=== PATIENT | female | born 1990 | race Caucasian/White ===

== ENCOUNTER → 2017-01-13 | Outpatient (REF) | payer OTHER ==
[~2017-01-13] MED LIST: TYLE650T25 PO
== END ==
LOC: M SFHCLERA 10:51
PROVIDERS: ATTEND Nurse Practitioner Family
DX: R53.81 Other malaise (principal)

== ENCOUNTER → 2018-09-08 | Outpatient (CLI) | payer OTHER ==
[2018-09-08 15:35] LABS: ALBUMIN 3.7 GM/DL (3.2-5.2); ALT/SGPT 28 U/L (12-78); BILIRUBIN,DIRECT < 0.1 MG/DL (0.0-0.2); BILIRUBIN,TOTAL 0.4 MG/DL (0.2-1.0); CHOLESTEROL LEVEL 217 MG/DL (<200); CHOLESTEROL RISK RATIO 4.717 (<5); FOLLICLE STIMULATING HORMONE 6.1 mIU/mL; HDL CHOLESTEROL 46 MG/DL (>40); LDL CHOLESTEROL 148 MG/DL (<100); LUTEINIZING HORMONE 2.4 mIU/mL; NON-HDL-C 171 MG/DL; PROLACTIN 7.2 NG/ML; TOTAL PROTEIN 7.9 GM/DL (6.4-8.2); TRIGLYCERIDES LEVEL 116 MG/DL (<150)
[2018-09-12 00:06] LABS: FREE ANDROGEN INDEX 0.9 (0.4-8.4); INSULIN LEVEL 22.2 uIU/mL (2.6-24.9); SEX HORM BINDING GLOB 33.5 nmol/L (24.6-122.0); TESTOSTERONE 9 ng/dL (8-48)
== END ==
LOC: M LAB 13:33
DX: E28.2 Polycystic ovarian syndrome (principal)

== ENCOUNTER → 2018-09-12 | Outpatient (CLI) | payer OTHER ==
--- NOTE | 2018-09-13 07:05 | REP ---
Clinical: Polycystic ovarian syndrome . Technique: Transabdominal pelvic ultrasound followed by transvaginal examination for better evaluation of the endometrium and adnexa. Findings: Bladder is unremarkable and measures 11.0 x 6.1 x 8.6 cm . Heterogeneous anteverted uterus measures 8.8 x 4.4 x 5.2 cm . The endometrial complex measures 16.4 mm thickness. Subcentimeter Nabothian cysts noted. Right ovary measures 5.0 x 3.0 x 3.0 cm and includes 2.4 x 2.1 x 1.8 cm dominant follicle. The left ovary is not definitively identified and a 7.5 cm left adnexal complex fat containing mass lesion is identified and consistent with dermoid. Findings are relatively similar to pelvic MRI dated 09/30/2014. Impression: 1. Limited examination due to body habitus and technical factors. Heterogeneous uterus with moderately thickened endometrial complex possibly related to menstrual cycle. 2. Left adnexal fat containing complex mass consistent with dermoid and similar to findings on prior MRI. 3. 2.4 cm right ovarian cyst likely dominant follicle. Electronically Signed by Deep Baxter MD 09/13/2018 06:56 A
== END ==
LOC: M RAD 16:54
DX: E28.2 Polycystic ovarian syndrome (principal)

== ENCOUNTER → 2018-09-26 | Outpatient (REF) | payer OTHER | LOC: M LAB LCGH 12:17 | DX: R87.615 Unsatisfactory cytologic smear of cervix (principal) ==

== ENCOUNTER → 2019-06-07 | Outpatient (CLI) | payer OTHER ==
[2019-06-07 12:04] LABS: ESTRADIOL 36.4 PG/ML; PROGESTERONE 1.55 NG/ML
== END ==
LOC: M LRY 09:07
PROVIDERS: ATTEND Obstetrics & Gynecology Reproductive Endocrinology
DX: E28.9 Ovarian dysfunction, unspecified (principal)

== ENCOUNTER → 2019-06-14 | Outpatient (CLI) | payer OTHER ==
[2019-06-14 12:07] LABS: HCG, SERUM QUANTITATIVE < 1.0 MIU/ML
[2019-06-14 12:15] LABS: PROGESTERONE 0.51 NG/ML
== END ==
LOC: M LRY 08:06
PROVIDERS: ATTEND Obstetrics & Gynecology Reproductive Endocrinology
DX: E28.9 Ovarian dysfunction, unspecified (principal)

== ENCOUNTER → 2019-07-17 | Outpatient (CLI) | payer OTHER ==
[2019-07-17 11:05] LABS: PROGESTERONE 7.8 NG/ML
== END ==
LOC: M LAB 09:33
PROVIDERS: ATTEND Obstetrics & Gynecology Reproductive Endocrinology
DX: E28.9 Ovarian dysfunction, unspecified (principal)

== ENCOUNTER → 2019-07-17 | Outpatient (CLI) | payer OTHER | LOC: M LRY 08:14 | PROVIDERS: ATTEND Obstetrics & Gynecology Reproductive Endocrinology | DX: E28.9 Ovarian dysfunction, unspecified (principal); Z53.8 Procedure and treatment not carried out for other reasons ==

== ENCOUNTER → 2019-07-24 | Outpatient (CLI) | payer OTHER ==
[2019-07-24 11:35] LABS: HCG, SERUM QUANTITATIVE < 1.0 MIU/ML
[2019-07-24 12:04] LABS: PROGESTERONE 0.76 NG/ML
== END ==
LOC: M LRY 09:27
PROVIDERS: ATTEND Obstetrics & Gynecology Reproductive Endocrinology
DX: Z32.00 Encounter for pregnancy test, result unknown (principal)

== ENCOUNTER → 2020-01-16 | Outpatient (CLI) | payer OTHER ==
[2020-01-16 10:07] LABS: ESTRADIOL 1171.6 PG/ML; PROGESTERONE 25.35 NG/ML
== END ==
LOC: M LAB 08:23
PROVIDERS: ATTEND Obstetrics & Gynecology Reproductive Endocrinology
DX: E28.9 Ovarian dysfunction, unspecified (principal)

== ENCOUNTER → 2020-01-21 | Outpatient (CLI) | payer OTHER ==
[2020-01-21 08:44] LABS: HCG, SERUM QUANTITATIVE < 1.0 MIU/ML
== END ==
LOC: M LAB 07:47
PROVIDERS: ATTEND Obstetrics & Gynecology Reproductive Endocrinology
DX: Z32.00 Encounter for pregnancy test, result unknown (principal)

== ENCOUNTER → 2020-02-19 | Outpatient (CLI) | payer OTHER ==
[2020-02-19 09:50] LABS: PROGESTERONE 20.32 NG/ML
== END ==
LOC: M LAB 08:20
PROVIDERS: ATTEND Obstetrics & Gynecology Reproductive Endocrinology
DX: E28.9 Ovarian dysfunction, unspecified (principal)

== ENCOUNTER → 2020-02-26 | Outpatient (CLI) | payer OTHER ==
[2020-02-26 08:56] LABS: HCG, SERUM QUANTITATIVE < 1.0 MIU/ML
[2020-02-26 09:59] LABS: PROGESTERONE 20.74 NG/ML
== END ==
LOC: M LAB 07:51
PROVIDERS: ATTEND Obstetrics & Gynecology Reproductive Endocrinology
DX: Z32.00 Encounter for pregnancy test, result unknown (principal)